=== PATIENT | female | born 2000 ===

== ENCOUNTER 2023-05-21 16:29 | Observation (INO) | payer SELFPAY ==
[~2023-05-21] VITALS: Ht 145 cm; Wt 50.0 kg
[2023-05-21 16:46] LABS: BASOPHILS % (AUTO) 0 % (0-10); EOSINOPHILS # (AUTO) 0.1 10^3/uL (0.0-0.3); EOSINOPHILS % (AUTO) 1 % (0-10); HEMATOCRIT 32 % (35-52); HEMOGLOBIN 10.6 g/dL (11.5-16.0); LYMPHOCYTES % (AUTO) 21 % (12-44); MEAN CORPUSCULAR HEMOGLOBIN 29 pg (25-34); MEAN CORPUSCULAR HGB CONC 33 g/dL (32-36); MEAN CORPUSCULAR VOLUME 87 fL (80-99); MEAN PLATELET VOLUME 10.2 fL (9.0-12.2); MONOCYTES % (AUTO) 10 % (0-12); NEUTROPHILS # (AUTO) 6.2 10^3/uL (1.8-7.8); NEUTROPHILS % (AUTO) 65 % (42-75); PLATELET COUNT 250 10^3/uL (130-400); WHITE BLOOD COUNT 9.5 10^3/uL (4.3-11.0)
[2023-05-21 16:51] VITALS: BP_SYST 93; BP_SYST 95; BP_SYST 99; BP_DIAS 57; BP_DIAS 65; BP_DIAS 66
[2023-05-21 16:55] LABS: ALBUMIN 3.3 GM/DL (3.2-4.5); CHLORIDE 107 MMOL/L (98-107); POTASSIUM 3.5 MMOL/L (3.6-5.0); SODIUM 136 MMOL/L (135-145)
[2023-05-21 16:56] LABS: CALCIUM 8.4 MG/DL (8.5-10.1)
[2023-05-21 16:57] LABS: GLUCOSE 79 MG/DL (70-105)
[2023-05-21 16:58] LABS: CARBON DIOXIDE 22 MMOL/L (21-32); TOTAL PROTEIN 6.8 GM/DL (6.4-8.2)
[2023-05-21 16:59] LABS: BILIRUBIN,TOTAL 0.4 MG/DL (0.1-1.0)
[2023-05-21 17:01] LABS: ALKALINE PHOSPHATASE 70 U/L (40-136); CREATININE SERUM 0.68 MG/DL (0.60-1.30); GFR ESTIMATED 125
[2023-05-21 17:02] LABS: BUN/CREATININE RATIO 12
[2023-05-21 17:04] LABS: ALANINE AMINOTRANSFERASE 15 U/L (0-55); MAGNESIUM 1.9 MG/DL (1.6-2.4)
[2023-05-21 17:11] LABS: BACTERIA,URINE FEW /HPF; BILIRUBIN,URINE NEGATIVE (NEGATIVE); CLARITY,URINE CLEAR; COLOR,URINE YELLOW; GLUCOSE, URINE (UA) NEGATIVE (NEGATIVE); KETONES,URINE TRACE (NEGATIVE); LEUKOCYTE ESTERASE ,URINE NEGATIVE (NEGATIVE); NITRITE,URINE NEGATIVE (NEGATIVE); PH,URINE 8.5 (5-9); PROTEIN,URINE 1+ (NEGATIVE); WBC,URINE RARE /HPF
[2023-05-21 17:32] LABS: AMPHETAMINE SCREEN, URINE NEGATIVE (NEGATIVE); BARBITURATE SCREEN URINE NEGATIVE (NEGATIVE); CANNABINOID SCREEN, URINE NEGATIVE (NEGATIVE); COCAINE SCREEN URINE NEGATIVE (NEGATIVE); METHADONE STAT NEGATIVE (NEGATIVE); OPIATE SCREEN URINE NEGATIVE (NEGATIVE); OXYCODONE STAT NEGATIVE (NEGATIVE); TRICYCLIC ANTIDEPRESSANTS SCRE NEGATIVE (NEGATIVE)
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
[2023-05-21 20:08] VITALS: BP_SYST 111; BP_SYST 86; BP_DIAS 52; BP_DIAS 69
[2023-05-21] MEDS ORDERED: ONDANSETRON INJECTION 4 MG/2 ML (SDV) IV PRN (21:30)
[2023-05-21] MEDS ORDERED: CATHETER FLUSH 10 ML SYR IVP PRN (21:30)
[2023-05-21] MEDS: CATHETER FLUSH 10 ML SYR IVP SCH (23:06)
[2023-05-22 00:20] VITALS: BP 99/57
[2023-05-22 01:30] VITALS: BP 99/57
[2023-05-22 04:00] VITALS: BP 110/62
[2023-05-22] MEDS: CATHETER FLUSH 10 ML SYR IVP SCH (05:55)
[2023-05-22 07:28] VITALS: BP 97/63
[2023-05-22] MEDS ORDERED: PREN-37 PO (09:26)
--- NOTE | 2023-05-22 10:44 | Short Stay Summary ---
History of Present Illness History of Present Illness Reason for visit/HPI 22 yo @25 weeks gestation that presented to hospital after having syncopal episodes. She was at the hospital all day with her mother who was admitted. She states that she did not have much to eat or drink. She is feeling baby moving. Denies any LOF, Vag bleeding or ctxs. On review she had similar episode with a blood draw when she was 17 yo. She has not had any more episodes. Denies any chest pain or shortness of breath since admission. Date of Admission May 21, 2023 at 19:52 Date of Discharge 05/22/23 Time Seen by Provider: 10:30 Attending Physician [facility] Admitting Physician Admitting Physician: Domingo Hu MD Attending Physician: Domingo Hu MD Consult Allergies and Home Medications Allergies Coded Allergies: No Known Drug Allergies (Unverified , 11/09/15) Patient Home Medication List Home Medication List Reviewed: Yes Vit/Iron Fumarate/FA ( Tablet) 27 Mg Iron-800 Mcg Tablet, 1 EACH PO DAILY, (Reported) Entered as Reported by: KARIME PARKER on 05/22/23 09 Last Action: Reviewed Past Vyhhysq-Icoqjf-Wodmuy Hx Patient Social History Marrital Status: Number of Children: 1 Number of living children: 1 Living Status: Lives independently with Smoking Status: Never a Smoker Alcohol Use?: No Pt feels they are or have been: No Surgeries Yes Section Respiratory No Cardiovascular Yes Syncope Neurological No Reproductive System : No Expected Date of Delivery: Sep 11, 2023 Hx Reproductive Disorders: No Genitourinary No Gastrointestinal No Musculoskeletal No Endocrine History of Endocrine Disorders: No HEENT History of HEENT Disorders: No Cancer No Psychosocial History of Psychiatric Problem: No Review of Systems Constitutional: no symptoms reported; No chills, No fever EENTM: no symptoms reported Respiratory: no symptoms reported; No short of breath Cardiovascular: chest pain (resovled today); No palpitations Gastrointestinal: no symptoms reported Genitourinary: no symptoms reported : Yes Musculoskeletal: no symptoms reported Skin: no symptoms reported Psychiatric/Neurological: No Symptoms Reported Physical Exam Vital Signs Vital Signs - First Documented 05/21/23 05/21/23 16:32 19:46 Temp 36.9 Pulse 89 Resp 18 B/P (MAP) 92/70 (77) Pulse Ox 98 O2 Delivery Room Air Capillary Refill : Less Than 3 Seconds Height, Weight, BMI Height: 4'8" Weight: 90lbs. oz. 40.796057qh; 23.78 BMI Method:Stated General Appearance: No Apparent Distress, WD/WN HEENT: PERRL/EOMI Neck: Full Range of Motion, Supple Respiratory: Chest Non Tender, Lungs Clear, Normal Breath Sounds, No Respiratory Distress Cardiovascular: Regular Rate, Rhythm, No Murmur Gastrointestinal: Normal Bowel Sounds, Non Tender, Soft, Other (gravid uterus) Back: No CVA Tenderness Extremity: Normal Range of Motion, Non Tender, No Calf Tenderness Neurologic/Psychiatric: Alert, Oriented x3, Normal Mood/Affect, grab setter II-XII Norm as Tested Skin: Normal Color, Warm/Dry Lymphatic: No Adenopathy Short Stay Diagnosis Discharge Diagnosis-Short Stay Admission Diagnosis: Syncopal episodes Second trimester Final Discharge Diagnosis: See above Conclusion Labs Laboratory Tests 05/21/23 16:35: White Blood Count 9.5, Red Blood Count 3.68L, Hemoglobin 10.6L, Hematocrit 32L, Mean Corpuscular Volume 87, Mean Corpuscular Hemoglobin 29, Mean Corpuscular Hemoglobin Concent 33, Red Cell Distribution Width 13.0, Platelet Count 250, Mean Platelet Volume 10.2, Immature Granulocyte % (Auto) 2, Neutrophils (%) (Auto) 65, Lymphocytes (%) (Auto) 21, Monocytes (%) (Auto) 10, Eosinophils (%) (Auto) 1, Basophils (%) (Auto) 0, Neutrophils # (Auto) 6.2, Lymphocytes # (Auto) 2.0, Monocytes # (Auto) 1.0, Eosinophils # (Auto) 0.1, Basophils # (Auto) 0.0, Immature Granulocyte # (Auto) 0.2H, Sodium Level 136, Potassium Level 3.5L, Chloride Level 107, Carbon Dioxide Level 22, Anion Gap 7, Blood Urea Nitrogen 8, Creatinine 0.68, Estimat Glomerular Filtration Rate 125, BUN/Creatinine Ratio 12, Glucose Level 79, Calcium Level 8.4L, Corrected Calcium 9.0, Magnesium Level 1.9, Total Bilirubin 0.4, Aspartate Amino Transf (AST/SGOT) 14, Alanine Aminotransferase (ALT/SGPT) 15, Alkaline Phosphatase 70, Total Protein 6.8, Albumin 3.3, Serum Alcohol < 10 05/21/23 16:56: Urine Color YELLOW, Urine Clarity CLEAR, Urine pH 8.5, Urine Specific [place] 1.020, Urine Protein 1+H, Urine Glucose (UA) NEGATIVE, Urine Ketones TRACEH, Urine Nitrite NEGATIVE, Urine Bilirubin NEGATIVE, Urine Urobilinogen 1.0, Urine Leukocyte Esterase NEGATIVE, Urine RBC (Auto) NEGATIVE, Urine RBC NONE, Urine WBC RARE, Urine Squamous Epithelial Cells 5-10, Urine Crystals NONE, Urine Bacteria FEWH, Urine Casts NONE, Urine Mucus NEGATIVE, Urine Culture Indicated NO, Urine Opiates Screen NEGATIVE, Urine Oxycodone Screen NEGATIVE, Urine Methadone Screen NEGATIVE, Urine Barbiturates Screen NEGATIVE, Ur Tricyclic Antidepressants Screen NEGATIVE, Urine Phencyclidine Screen NEGATIVE, Urine Amphetamines Screen NEGATIVE, Urine Methamphetamines Screen NEGATIVE, Urine Benzodiazepines Screen NEGATIVE, Urine Cocaine Screen NEGATIVE, Urine Cannabinoids Screen NEGATIVE Conclusion/Plan Patient admitted and started on IVFs. Blood pressure improved and she has not had any further episodes. Will d/c today with f.u with Fritz next week Copy Copies To 1: DOMINGO HU MD, HOLLY R MD May 22, 2023 10:44
--- NOTE | 2023-05-22 10:46 | Discharge Summary ---
Discharge [facility] Discharge Medications New, Converted or Re-Newed RX: Other (No new meds) Continued Medications: Vit/Iron Fumarate/FA ( Tablet) 27 Mg Iron-800 Mcg Tablet 1 EACH PO DAILY, TAB Patient Instructions Goal/Follow Up Appt: 1 week with Fritz Activity & Diet Discharge Diet: No Restrictions (Push hydration) Activity as Tolerated: Yes DOMINGO HWANG MD May 22, 2023 10:46
[2023-05-22 11:22] VITALS: BP 95/58
[2023-05-22 11:45] VITALS: BP 95/58
== END 2023-05-22 11:46 | disposition home or self-care (01) ==
LOC: EDUNIT# 16:29 → ER 16:31 → 4TH 19:52
PROVIDERS: ADMIT Family Medicine; ATTEND Family Medicine
DX: O26.892 Other specified pregnancy related conditions, second trimester (principal); R55 Syncope and collapse; Z3A.25 25 weeks gestation of pregnancy
CPT/HCPCS: 80053; 80306; 81000; 83735; 85025; 93005; 93041; 99284; G0480; 36415; 80320; G0378